=== PATIENT | male | born 2000 | race Two or more races ===

== ENCOUNTER 2024-09-10 02:09 | Emergency (ER) | payer BC ==
[2024-09-10] MEDS ORDERED: Dexamethasone 4 MG/ML SDV IVPUSH ONE (03:36)
[2024-09-10] MEDS: Dexamethasone 4 MG Tab PO ONE (04:02)
== END 2024-09-10 04:32 | disposition home or self-care (01) ==
LOC: MW.ED 02:09
DX: J18.9 Pneumonia, unspecified organism (principal); H92.02 Otalgia, left ear; F17.290 Nicotine dependence, other tobacco product, uncomplicated; Z86.16 Personal history of COVID-19; Z87.09 Personal history of other diseases of the respiratory system; Z79.899 Other long term (current) drug therapy
CPT/HCPCS: 71045; 87428; 99284; J8540